=== PATIENT | female | born 1995 | race African-American/Black ===

== ENCOUNTER 2021-12-22 19:01 | Outpatient (CLI) | payer OTHER ==
[~2021-12-22] VITALS: Ht 172.7 cm; Wt 82.7 kg
[2021-12-22 19:30] VITALS: TEMP 98.8
[2021-12-22 19:45] VITALS: BP 120/69; PULSE 70; TEMP 98.8
[2021-12-22 20:11] LABS: MUCOUS Present (NOT PRESENT); PH 5 (5-8); SQUAMOUS EPITHELIAL 0-2 /hpf (0-10); URINE APPEARANCE Clear (CLEAR/HAZY); URINE BACTERIA None Seen /hpf (NONE SEEN); URINE BILIRUBIN Negative (NEGATIVE); URINE BLOOD 1+ (NEGATIVE); URINE COLOR Yellow (YELLOW); URINE GLUCOSE Negative (NEGATIVE); URINE KETONE 1+ (NEGATIVE); URINE LEUKOCYTE ESTERASE Negative (NEGATIVE); URINE NITRATE Negative (NEGATIVE); URINE PROTEIN(semi-quant) Negative (NEGATIVE); URINE RBC 0-2 /hpf (0-2); URINE UROBILINOGEN Negative (NEGATIVE)
[2021-12-22 20:18] LABS: COLLECTION METHOD CLEAN CATCH
--- NOTE | 2021-12-22 20:38 | NUR ---
PT CAME TO L&D WITH C.O LOW BACK AND LOW LEFT ABD PAIN WITH SHARP SHOOTING PAINS DOWN HER LEFT LEG AND GROIN AREA. THE PAIN IS A 2 ON THE PAIN SCALE BUT WHEN SHE HAS THE SHARP SHOOTING PAIN THAT COMES AND GOES IT IS 5-6 ON THE PAIN SCALE. PT HAS TAKEN TYLENOL IN THE PAST FOR IT BUT HAS NOT TAKEN ANY FOR 2 DAYS. SHE HAS BEEN LEAKING FLUID ALL DAY TODAY AND THOUGHT MAYBE HER BOW RUPTURED. AMNITRACEWAS NEG. ROM PLUS NEG, PERINEUM IS DRY. PT DENIES UC'S, VAG BLEEDING, LARSON, BLURRED VISION, SPOTS. PT STATE SHE HAS BEEN UP ON HER FEET ALL DAY WORKING AND HER PANTY LINER WAS GETTING WET. FHT'S WERE 155 WITH DOPPLER. AND POSITIVE MOVMENT SEVERAL TIMES THAT WAS PALPATED AND SEEN BY NURSE AND THE PT. DR MARCH CALLED IN AFTER SEEING NEG LAB RESULTS AND ORDERS FOR PT TO DC TO HOME WITH DISCHARGE INSTRUCTIONS AND PT MAY GO SEE A CHIROPRACTOR FOR BACK PAIN.
== END 2021-12-22 20:55 | disposition home or self-care (01) ==
LOC: LDRO 19:01
PROVIDERS: Obstetrics & Gynecology
DX: O26.899 Other specified pregnancy related conditions, unspecified trimester (principal); R10.32 Left lower quadrant pain; M54.9 Dorsalgia, unspecified; Z3A.00 Weeks of gestation of pregnancy not specified

== ENCOUNTER → 2022-07-28 | Outpatient (CLI) | payer OTHER ==
[~2022-07-28] MED LIST: ASPIRIN 81M81 MG/TA2 PO; IBU600 MG PO; PRENATAL TABLET PO; ROXICODONE 55 MG/TAB PO
--- NOTE | 2022-07-28 16:15 | NUR ---
Pt, Shawn Gavin, presents to walk-in clinic with 2 month old baby girl, Harriett Gavin, and her spouse Maurice Gavin. Pt states she had gone to primarily pumping and bottle feeding due to sore nipples. Harriett was born on [birth year] and weighed 7# 3oz (3260 gms). Because of sore nipples Harriett is bottle feeding ~3oz q 3 hours. Pt is pumping about q 3 hours, stating she collects 3-5oz, however she also states having to use 6-10 formula daily, so there is likely a low milk supply as well. Today Harriett weighs 9# 10oz (4364 gms). Her last weight was on 07/05/22 when she weighed 8# 3oz at [facility] per pt's report. Pt assisted to latch Harriett on well, after nursing bilaterally Harriett has a gain of 30 gms (1 oz). LC evaluates Harriett's oral anatomy and notes a high anterior palate. This may make milk transfer difficult because she cannot compress the nipple the full length against the palate. Family states it takes Harriett about 30 minutes to bottle feed, which she is offered after . LC works with bottle feeding, finds it easy to pull the bottle from the baby. Parents complete the feeding. POC: Continue offering breast with improved latch, follow with ~2oz EBM or formula and then pump to boost milk supply. F/U: Walk in clinic as desired to evaluate milk supply and milk tranfer. Questions invited and answered.
== END ==
LOC: LAC 12:34
DX: Z39.1 Encounter for care and examination of lactating mother (principal); Z71.89 Other specified counseling